=== PATIENT | female | born 1935 | race Caucasian/White ===

== ENCOUNTER 2016-06-08 11:18 | Outpatient (CLI) | payer MEDICARE, BC | END 2016-06-08 23:59 | disposition home or self-care (01) | LOC: CARD 11:18 | DX: C34.91 Malignant neoplasm of unspecified part of right bronchus or lung (principal) | CPT/HCPCS: 93971-TC ==

== ENCOUNTER 2017-01-23 15:19 | Inpatient (IN) | payer MEDICARE, BC ==
[~2017-01-23] VITALS: Ht 160 cm; Wt 57.2 kg
--- NOTE | 2017-01-23 15:19 | NUR ---
BIB DAUGHTER C/O RESPIRATORY DISTRESS, ON O2 @ 15L/MIN FLATTENING MACHINE OPERATOR SPO2=84% FLATTENING MACHINE OPERATOR. NAD NOTED. PT AAO X4, AMB WITH STEADY GAIT. PLACED ON MONITOR AND GOWN. DR ALFONSO AT BEDSIDE FOR EVAL.
[2017-01-23] MEDS ORDERED: IPRATROPIUM NEB FS 0.5 MG/2.5 ML AMPUL.NEB NEB ONE ×2 (15:30→17:00)
[2017-01-23] MEDS ORDERED: ALBUTEROL FS 2.5 MG/3 ML VIAL.NEB NEB ONE ×2 (15:30→17:00)
[2017-01-23 15:53] LABS: BASOPHILS # (AUTO) 0.1 /CMM (0.0-0.2); BASOPHILS % (AUTO) 1.2 % (0.0-2.0); EOSINOPHILS # (AUTO) 0.1 /CMM (0.0-0.7); EOSINOPHILS % (AUTO) 1.1 % (0.0-6.0); HEMATOCRIT 39 % (33-45); HEMOGLOBIN 12.4 g/dL (11.5-14.8); LYMPHOCYTES # (AUTO) 3.1 /CMM (0.8-4.8); LYMPHOCYTES % (AUTO) 24.7 % (20.0-44.0); MEAN CORPUSCULAR HEMOGLOBIN 30 PG (26.0-33.0); MEAN CORPUSCULAR HGB CONC 32 g/dl (31.0-36.0); MEAN CORPUSCULAR VOLUME 93 fL (82-100); MONOCYTES # (AUTO) 0.8 /CMM (0.1-1.30); MONOCYTES % (AUTO) 6.1 % (2.0-12.0); NEUTROPHILS # (AUTO) 8.3 /CMM (1.8-8.9); NEUTROPHILS % (AUTO) 66.9 % (43.0-81.0); PLATELET COUNT (AUTO) 418 /CMM (150-450); RDW COEFFICIENT OF VARIATION 13.5 (11.5-15.0); RED BLOOD CELL COUNT(AUTO) 4.14 MIL/uL (4.0-5.2); WHITE BLOOD COUNT (AUTO) 12.4 K/uL (4.3-11.0)
[2017-01-23 16:01] LABS: ABG BASE EXCESS 8.6 mmol/L; ABG OXYGEN SATURATION 83.5 % (92.0-98.5); ABG PCO2 36.5 mmHg (35.0-45.0); ABG PH 7.552 (7.350-7.450); ABG PO2 45.2 mmHg (75.0-100.0); AaDO2 486.9 mmHg; COHb 0.2 % (0.5-1.5); MetHb 0.3 % (0.0-1.5); O2Hb 83.1 % (94.0-97.0); SITE, ABG Left Radial; VENT MODE, BG NEBULIZER MASK 10L
[2017-01-23 16:03] LABS: CALCIUM, SERUM 9.7 mg/dL (8.5-10.1); CARBON DIOXIDE 30 mmol/L (21-32); CHLORIDE 103 mmol/L (98-107); GLUCOSE 119 mg/dL (74-106); POTASSIUM 3.9 mmol/L (3.5-5.1); SODIUM SERUM 142 mmol/L (136-145); UREA NITROGEN, BLOOD 23 mg/dL (7-18)
[2017-01-23 16:07] LABS: INR 1.06 (0.87-1.13)
[2017-01-23 16:11] LABS: TROPONIN I < 0.017 ng/mL (0.00-0.056)
[2017-01-23 16:16] LABS: ALANINE AMINOTRANSFERASE 16 U/L (12-78); ALBUMIN 3.4 g/dL (3.4-5.0); ALKALINE PHOSPHATASE 88 U/L (46-116); ASPARTATE AMINOTRANSFERASE 19 U/L (15-37); B-TYPE NATRIURETIC PEPTIDE 224 PG/ML (0-125); BILIRUBIN,DIRECT 0.1 mg/dL (0.0-0.2); BILIRUBIN,TOTAL 0.4 mg/dL (0.2-1.0); TOTAL PROTEIN, SERUM 7.4 g/dL (6.4-8.2)
[2017-01-23] MEDS ORDERED: ALBU2.5V38 NEB (16:21)
[2017-01-23] MEDS ORDERED: IPRA0.2S49 NEB (16:21)
[2017-01-23] MEDS ORDERED: METH4TAB16 PO (16:21)
[2017-01-23] MEDS ORDERED: DOCU-170 PO (16:21)
[2017-01-23] MEDS ORDERED: RANI150T12 PO (16:24)
[2017-01-23] MEDS ORDERED: FAMO20TA8 PO (16:24)
[2017-01-23] MEDS ORDERED: GUAI600T PO (16:24)
[2017-01-23] MEDS ORDERED: LORA10TA7 PO (16:24)
--- NOTE | 2017-01-23 16:25 | NUR ---
RT PATIENT REFUSED TO WEAR BIPAP STATED IT IS UNCOMFORTABLE. BENEFITS OF BIPAP EXPLAINED AND PATIENT CONT TO REFUSE. DAUGHTER AT BEDSIDE. PATIENT PLACED BACK ON NRB MASK. DR ALFONSO NOTIFIED.
--- NOTE | 2017-01-23 16:38 | NUR ---
CALLED [employer], BOTTLE SORTER WAS PAGED.
[2017-01-23] MEDS ORDERED: HYDROCODONE/APAP 5/325MG 1 EACH TABLET ONE (16:54)
--- NOTE | 2017-01-23 16:59 | NUR ---
PATIENT WILL BE ADMITTED INTO ROOM 254.
[2017-01-23] MEDS ORDERED: AZITHROMYCIN 500 MG in IV D5W 250 ML IV ONE (17:00)
[2017-01-23] MEDS ORDERED: CEFTRIAXONE 1GM BAG (ER ONLY) 50 ML IV ONE ×2 (17:00→17:08)
[2017-01-23] MEDS ORDERED: HYDROCODONE/APAP 5/325MG 1 EACH TABLET PO ONE (17:00)
[2017-01-23] MEDS ORDERED: IPRATROPIUM NEB FS 0.5 MG/2.5 ML AMPUL.NEB ONE (17:03)
[2017-01-23] MEDS ORDERED: ALBUTEROL FS 2.5 MG/3 ML VIAL.NEB ONE (17:03)
[2017-01-23] MEDS ORDERED: ALBUTEROL FS 2.5 MG/0.5 ML VIAL.NEB ONE (17:03)
--- NOTE | 2017-01-23 17:06 | NUR ---
REPORT GIVEN TO LE HERNANDEZ FOR ANTON
[2017-01-23] MEDS ORDERED: ONDANSETRON HCL/PF 4 MG/2 ML VIAL IVP ONE (17:30)
[2017-01-23] MEDS ORDERED: MORPHINE SULFATE INJ 2 MG/ML DISP.SYRIN IV ONE (17:30)
[2017-01-23] MEDS: ACETYLCYSTEINE 20% SOLN 800 MG/4 ML VIAL NEB SCH ×3 (17:33→23:58)
[2017-01-23] MEDS ORDERED: ONDANSETRON HCL/PF 4 MG/2 ML VIAL ONE (17:37)
[2017-01-23] MEDS ORDERED: MORPHINE SULFATE INJ 4 MG/ML DISP.SYRIN ONE (17:37)
--- NOTE | 2017-01-23 17:37 | NUR ---
DR ROLLINS WAS PAGED.
--- NOTE | 2017-01-23 17:58 | NUR ---
REFUSED SECOND PIV
[2017-01-23] MEDS ORDERED: HEPARIN SODIUM, PORCINE 5000 UNITS/1 ML VIAL IV ONE (18:00)
[2017-01-23] MEDS ORDERED: MAGNESIUM HYDROXIDE 30 ML UDC PO PRN (18:00)
[2017-01-23] MEDS ORDERED: ACETAMINOPHEN 325 MG TABLET PO PRN (18:00)
[2017-01-23] MEDS ORDERED: Z GUARD REMEDY 2 OZ OINT TP PRN (18:00)
[2017-01-23] MEDS ORDERED: MAG HYDROX/AL HYDROX/SIMETH 30 ML UDC PO PRN (18:00)
[2017-01-23] MEDS ORDERED: HEPARIN INFUSION/D5W 500 ML IV ONE (18:00)
--- NOTE | 2017-01-23 18:20 | NUR ---
PULLING MACHINE OPERATOR; ADMIT RECEIVED PT FROM ER VIA TROYRLAURA. WITH ACLS PROTOCOL. PT PLACED ON IN STORE MARKETING ASSOCIATE SHOWING SINUS TACH WITH PVC. PT SATURATION 91% ON NON RE-BREATHER. PT REFUSES USE OF BIPAP. PT HAS ONE IV SITE TO LEFT FOREARM 20G, PT REFUSES SECOND IV ACCESS. 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 WILL REVIEW ADMITTING ORDERS.
[2017-01-23 18:27] VITALS: BP 127/70
[2017-01-23 18:30] VITALS: BP 127/70
[2017-01-23] MEDS ORDERED: HEPARIN INFUSION/D5W 500 ML IV PRN (19:00)
--- NOTE | 2017-01-23 19:35 | NUR ---
pt going for vq scan now, with [employer] ballistic technician. with oxygen nonrebreather 15 lpm. with transport monitor via acls protocol
--- NOTE | 2017-01-23 20:00 | NUR ---
SHIFT MGR - NOTES - RECEIVED PT IN BED, AWAKE ALERT ORIENTED X4. PT ON SALES PROPERTY MANAGER SHOWING SINUS TACH WITH PVC. PT SATURATION LOW 90S% ON NON RE-BREATHER 15 LPM. PT REFUSES USE OF BIPAP. PT HAS ONE IV SITE TO LEFT FOREARM 20G, PT REFUSES SECOND IV ACCESS. DISCUSSED BENEFITS. PT ORIENTED TO ROOM CALL LIGHT WITH IN REACH, BED SET TO LOW POSITION. WILL CONTINUE TO MONITOR
--- NOTE | 2017-01-23 20:10 | NUR ---
PT REFUSED FREQUENT BP READINGS, WILL TAKE BP WHEN PT ALLOWS
--- NOTE | 2017-01-23 20:40 | NUR ---
pt returned from vq scan, successfully completed
--- NOTE | 2017-01-23 20:54 | NUR ---
pt refused heparin drip until after vq scan results
[2017-01-23] MEDS: ALBUTEROL FS 2.5 MG/0.5 ML VIAL.NEB NEB SCH ×2 (21:10→23:59)
[2017-01-23] MEDS: IPRATROPIUM NEB FS 0.5 MG/2.5 ML AMPUL.NEB NEB SCH ×2 (21:10→23:59)
[2017-01-23] MEDS: IV NS 0.9% 1,000 ML IV PRN (21:18)
--- NOTE | 2017-01-23 21:36 | NUR ---
PT GIVEN BREATHING TX ALBUETEROL AND ATROVENT WITH MUCOMYST. PT REQUESTED MUCOMYST ALONG WITH ALBUTEROL AND ATROVENT. PT STATES SHE GETS Q4 MUCOMYST. ORDER IS Q8 MUCOMYST. PULLED MUCOMYST EARLY. NOTIFIED RN TO CHANGED MUCOMYST TO Q4.
--- NOTE | 2017-01-23 22:20 | NUR ---
DR AMES CALLED AND NOTIFIED OF VQ SCAN RESULTS, PT REFUSING HEPARIN DRIP
[2017-01-23] MEDS ORDERED: ACETYLCYSTEINE 10% SOLN 400 MG/4 ML VIAL NEB SCH (23:30)
[2017-01-23] MEDS ORDERED: MORPHINE SULFATE INJ 2 MG/ML DISP.SYRIN ONE (23:48)
[2017-01-23] MEDS: MORPHINE SULFATE INJ 2 MG/ML DISP.SYRIN IV PRN (23:50)
[2017-01-23] MEDS: ACETYLCYSTEINE 10% SOLN 400 MG/4 ML VIAL NEB SCH (23:58)
[2017-01-24] VITALS (10 sets, daily range): BP systolic 110–145; BP diastolic 58–71
--- NOTE | 2017-01-24 03:15 | NUR ---
PT GOT UP WITH ASSISTANCE TO USE BEDSIDE COMMODE
--- NOTE | 2017-01-24 03:23 | NUR ---
PT WANTS NASAL SPRAY FOR DRY NOSE
[2017-01-24] MEDS: IPRATROPIUM NEB FS 0.5 MG/2.5 ML AMPUL.NEB NEB SCH ×6 (03:42→23:36)
[2017-01-24] MEDS: ALBUTEROL FS 2.5 MG/0.5 ML VIAL.NEB NEB SCH ×6 (03:42→23:36)
[2017-01-24] MEDS: ACETYLCYSTEINE 10% SOLN 400 MG/4 ML VIAL NEB SCH ×6 (03:43→23:36)
[2017-01-24 04:36] LABS: BASOPHILS # (AUTO) 0.1 /CMM (0.0-0.2); BASOPHILS % (AUTO) 0.5 % (0.0-2.0); EOSINOPHILS # (AUTO) 0.2 /CMM (0.0-0.7); EOSINOPHILS % (AUTO) 1.9 % (0.0-6.0); HEMATOCRIT 32 % (33-45); HEMOGLOBIN 10.5 g/dL (11.5-14.8); LYMPHOCYTES # (AUTO) 2.8 /CMM (0.8-4.8); LYMPHOCYTES % (AUTO) 22.2 % (20.0-44.0); MEAN CORPUSCULAR HEMOGLOBIN 30 PG (26.0-33.0); MEAN CORPUSCULAR HGB CONC 33 g/dl (31.0-36.0); MEAN CORPUSCULAR VOLUME 93 fL (82-100); MONOCYTES # (AUTO) 1.2 /CMM (0.1-1.30); MONOCYTES % (AUTO) 9.3 % (2.0-12.0); NEUTROPHILS # (AUTO) 8.2 /CMM (1.8-8.9); NEUTROPHILS % (AUTO) 66.1 % (43.0-81.0); PLATELET COUNT (AUTO) 318 /CMM (150-450); RDW COEFFICIENT OF VARIATION 14.3 (11.5-15.0); RED BLOOD CELL COUNT(AUTO) 3.48 MIL/uL (4.0-5.2); WHITE BLOOD COUNT (AUTO) 12.4 K/uL (4.3-11.0)
[2017-01-24 04:46] LABS: ALANINE AMINOTRANSFERASE 16 U/L (12-78); ALBUMIN 2.7 g/dL (3.4-5.0); ALKALINE PHOSPHATASE 73 U/L (46-116); ASPARTATE AMINOTRANSFERASE 15 U/L (15-37); BILIRUBIN,DIRECT 0.1 mg/dL (0.0-0.2); BILIRUBIN,TOTAL 0.4 mg/dL (0.2-1.0); CALCIUM, SERUM 9.4 mg/dL (8.5-10.1); CARBON DIOXIDE 33 mmol/L (21-32); CHLORIDE 107 mmol/L (98-107); GLUCOSE 125 mg/dL (74-106); MAGNESIUM 1.8 mg/dL (1.8-2.4); POTASSIUM 3.8 mmol/L (3.5-5.1); SODIUM SERUM 146 mmol/L (136-145); TOTAL PROTEIN, SERUM 6.2 g/dL (6.4-8.2); UREA NITROGEN, BLOOD 22 mg/dL (7-18)
[2017-01-24 04:55] LABS: CHOLESTEROL 171 mg/dL (<200); HDL CHOLESTEROL 38 mg/dL (40-60); LDL 112 mg/dL (0-99); THYROID STIMULATING HORMONE 1.252 uIU/mL (0.358-3.74); TRIGLYCERIDES 159 mg/dL (30-150)
[2017-01-24] MEDS ORDERED: MORPHINE SULFATE INJ 2 MG/ML DISP.SYRIN ONE (06:18)
[2017-01-24] MEDS: MORPHINE SULFATE INJ 2 MG/ML DISP.SYRIN IV PRN ×4 (06:20→18:49)
--- NOTE | 2017-01-24 07:05 | NUR ---
RN INITIAL NOTES RECEIVED PT ASLEEP, EASY TO AROUSE. ON NON-REBREATHER AT 15LPM. NO RESPIRATORY DISTRESS NOTED. NO SOB NOTED. HOB ELEVATED. NO SIGNS OF PAIN NOTED. IV LINE IN PLACE. ON IVF, TOLERATING WELL. PT COMFORTABLE. CALL LIGHT WITHIN REACH. WILL MONITOR.
[2017-01-24] MEDS: PANTOPRAZOLE 40 MG TABLET.DR PO SCH (07:30)
--- NOTE | 2017-01-24 09:10 | NUR ---
RN NOTES SEEN AND EXAMINED BY DR. KWAN. AWARE OF PT'S STATUS, LAB VALUES. ALSO AWARE OF VQ SCAN RESULT. ORDERED BLE VENOUS DOPPLER. NOTED AND CARRIED OUT. PT AWARE. Addendum: 01/24/17 at 1043 by LEAH PENA RN ABG DONE. DR. KWAN AWARE OF RESULT. WILL KEEP PT ON NON-REBREATHER AT 15LPM. KEPT HOB ELEVATED. NO SOB NOTED. WILL MONITOR.
[2017-01-24 10:40] LABS: ABG BASE EXCESS 5.9 mmol/L; ABG OXYGEN SATURATION 94.9 % (92.0-98.5); ABG PCO2 41.4 mmHg (35.0-45.0); ABG PH 7.478 (7.350-7.450); ABG PO2 77.8 mmHg (75.0-100.0); AaDO2 449.1 mmHg; MetHb 0.8 % (0.0-1.5); O2Hb 94.1 % (94.0-97.0); SITE, ABG Left Radial; VENT MODE, BG 15L NRB
[2017-01-24] MEDS: ENOXAPARIN SODIUM 60 MG/0.6 ML DISP.SYRIN SQ SCH ×2 (11:44→23:52)
[2017-01-24 12:49] LABS: IRON, SERUM 30 ug/dl (50-175); TOTAL IRON BINDING CAPACITY 202 ug/dl (250-450)
[2017-01-24] MEDS: IV NS 0.9% 1,000 ML IV PRN (13:51)
[2017-01-24 14:27] LABS: APPEARANCE,URINE CLEAR (CLEAR); BILIRUBIN,URINE NEGATIVE (NEGATIVE); BLOOD, URINE NEGATIVE Ery/uL (NEGATIVE); COLOR,URINE YELLOW (YELLOW); KETONES,URINE TRACE (NEGATIVE); LEUKOCYTE ESTERASE ,URINE TRACE (NEGATIVE); NITRITE, URINE NEGATIVE (NEGATIVE); PH,URINE 7.5 (5.0-8.0); PROTEIN,URINE TRACE mg/dl (NEGATIVE); UGLUCOSE NEGATIVE (NEGATIVE); UROBILINOGEN,URINE 0.2 EU/dL (0.2)
[2017-01-24 16:03] LABS: BACTERIA,URINE None seen /HPF (None Seen); RBC,URINE 0-2 /HPF (0-2); SQUAMOUS EPITHELIAL CELL,UR Few /HPF (None Seen)
[2017-01-24] MEDS ORDERED: CEFTRIAXONE 1 G in IV D5W 50 ML IV SCH (17:00)
--- NOTE | 2017-01-24 17:00 | NUR ---
RN NOTES CALLED DR. BENTON REGARDING CT CHEST RESULT. LEFT A MESSAGE. AWAITING CALL BACK. PT A/OX4. DENIES SOB. ON NON-REBREATHER AT 15LPM. HOB ELEVATED. WILL MONITOR Addendum: 01/24/17 at 1756 by LEAH PENA RN DR BENTON CALLED BACK. AWARE OF CT CHEST AND D-DIMER RESULT. PT ON IV ANTIBIOTICS. NO ASE NOTED. AFEBRILE. PER , REPEAT D-DIMER IN AM.
[2017-01-24] MEDS ORDERED: AZITHROMYCIN 500 MG in IV D5W 250 ML IV SCH (18:00)
--- NOTE | 2017-01-24 18:57 | NUR ---
RN CLOSING NOTES PT REMAINS STABLE. NO SIGNIFICANT CHANGE NOTED. REMAINS ON NON-REBREATHER AT 15LPM. KEP HOB ELEVATED. PAIN WELL MANAGED, GIVEN PAIN MEDS ORDERED. KEPT COMFORTABLE. ALL NEEDS ATTENDED AND MET. WILL ENDORSE FOR CONTINUITY OF CARE.
[2017-01-24] MEDS ORDERED: FEE PK DOSING 1 MIN EA MC ONE (19:14)
[2017-01-24] MEDS: VANCOMYCIN 1 GM in IV D5W 250 ML IV SCH (19:55)
--- NOTE | 2017-01-24 20:00 | NUR ---
PIPED BUTTONHOLE MACHINE OPERATOR - NOTES - RECEIVED PT IN BED, AWAKE ALERT ORIENTED X 4. PT IS ON NRB AT 15 LPM, PT IS SR BP WNL, PT REFUSES FREQUENT BLOOD PRESSURE. PT HAS L FA 20G IV W NS @ 60 ML/HR TOLERATING WELL. PT COMFORTABLE. CALL LIGHT WITHIN REACH. WILL MONITOR.
--- NOTE | 2017-01-24 21:55 | NUR ---
L FA 20G IV INFILTRATED. PT AGREED TO HAVE A MIDLINE PLACED IN LEFT ARM
[2017-01-24] MEDS: HYDROCODONE/APAP 5/325MG 1 EACH TABLET PO PRN (22:55)
[2017-01-24] MEDS: PIPERACILLIN /TAZOBACTAM 3.375 G in IV D5W 50 ML IV SCH (23:53)
[2017-01-25] VITALS (11 sets, daily range): BP systolic 120–147; BP diastolic 50–82
[2017-01-25] MEDS ORDERED: methylPREDNISolone SOD SUCC 125 MG/2ML VIAL ONE (00:46)
[2017-01-25] MEDS ORDERED: FAMOTIDINE/PF INJ 20 MG/2 ML VIAL IV ONE (00:46)
[2017-01-25] MEDS: MORPHINE SULFATE INJ 2 MG/ML DISP.SYRIN IV PRN ×2 (00:49→18:40)
[2017-01-25] MEDS ORDERED: FAMOTIDINE (20 MG) 20 MG TABLET ONE (00:53)
[2017-01-25] MEDS: FAMOTIDINE (20 MG) 20 MG TABLET PO SCH ×3 (00:55→21:13)
[2017-01-25] MEDS ORDERED: methylPREDNISolone SOD SUCC 125 MG/2ML VIAL IV ONE (01:00)
[2017-01-25] MEDS: ONDANSETRON HCL/PF 4 MG/2 ML VIAL IVP PRN (03:06)
[2017-01-25] MEDS: ACETYLCYSTEINE 10% SOLN 400 MG/4 ML VIAL NEB SCH ×6 (03:56→23:10)
[2017-01-25] MEDS: IPRATROPIUM NEB FS 0.5 MG/2.5 ML AMPUL.NEB NEB SCH ×6 (03:56→23:10)
[2017-01-25] MEDS: ALBUTEROL FS 2.5 MG/0.5 ML VIAL.NEB NEB SCH ×6 (03:56→23:10)
[2017-01-25 04:36] LABS: BASOPHILS % (AUTO) 0.3 % (0.0-2.0); EOSINOPHILS # (AUTO) 0.1 /CMM (0.0-0.7); EOSINOPHILS % (AUTO) 0.8 % (0.0-6.0); HEMATOCRIT 31 % (33-45); HEMOGLOBIN 10.6 g/dL (11.5-14.8); LYMPHOCYTES % (AUTO) 6.3 % (20.0-44.0); MEAN CORPUSCULAR HEMOGLOBIN 31 PG (26.0-33.0); MEAN CORPUSCULAR HGB CONC 34 g/dl (31.0-36.0); MEAN CORPUSCULAR VOLUME 93 fL (82-100); MONOCYTES # (AUTO) 0.2 /CMM (0.1-1.30); MONOCYTES % (AUTO) 1.2 % (2.0-12.0); NEUTROPHILS # (AUTO) 14.7 /CMM (1.8-8.9); NEUTROPHILS % (AUTO) 91.4 % (43.0-81.0); PLATELET COUNT (AUTO) 286 /CMM (150-450); RDW COEFFICIENT OF VARIATION 13.7 (11.5-15.0); RED BLOOD CELL COUNT(AUTO) 3.38 MIL/uL (4.0-5.2)
[2017-01-25 04:57] LABS: CALCIUM, SERUM 9.5 mg/dL (8.5-10.1); CARBON DIOXIDE 30 mmol/L (21-32); CHLORIDE 107 mmol/L (98-107); CREATININE 0.9 mg/dL (0.6-1.3); GLUCOSE 170 mg/dL (74-106); MAGNESIUM 1.8 mg/dL (1.8-2.4); POTASSIUM 3.9 mmol/L (3.5-5.1); SODIUM SERUM 144 mmol/L (136-145); UREA NITROGEN, BLOOD 14 mg/dL (7-18)
[2017-01-25] MEDS: PIPERACILLIN /TAZOBACTAM 3.375 G in IV D5W 50 ML IV SCH ×4 (05:06→23:47)
[2017-01-25 05:37] LABS: LYMPHOCYTES % (MANUAL) 5 % (16-48); NEUTROPHILS % (MANUAL) 95 (42-76)
[2017-01-25] MEDS: PANTOPRAZOLE 40 MG TABLET.DR PO SCH (07:30)
--- NOTE | 2017-01-25 07:30 | NUR ---
HUMAN RELATIONS MANAGER RECEIVED PATIENT AWAKE SITTING ON BED WITH ON GOING IV OF NS TO RUN FOR 60 ML/HR AFEBRILE ON NON-REBREATHING MASK AT 15 LITERS/MIN ABLE TO EXPECTORATE YELLOWISH SECRETION IN LARGE AMOUNT PATIENT SAID THAT SHE HAS PAIN , PAIN MEDICATION GIVEN ABLE TO WALK FROM BED TO COMMODE PATIENT DOES NOT WANT TO HER BLOOD PRESSURE ALL THE TIME SINCE SHE SAID ITS NO USE SINCE SHE DOES NOT FEEL ANYTHING WRONG WITH HER BP NO OTHER UNTOWARD SIGNS AND SYMPTOMS SEEN
[2017-01-25] MEDS: OLOPATADINE HCL 0.1% OPHTH BOTTLE EACHEYE SCH ×3 (09:08→17:30)
[2017-01-25] MEDS: methylPREDNISolone SOD SUCC 125 MG/2ML VIAL IV SCH ×3 (09:10→17:30)
[2017-01-25] MEDS: ENOXAPARIN SODIUM 60 MG/0.6 ML DISP.SYRIN SQ SCH (10:57)
[2017-01-25] MEDS ORDERED: DOCUSATE SODIUM 100 MG CAPSULE PO SCH (11:00)
[2017-01-25] MEDS: DOCUSATE SODIUM 100 MG CAPSULE PO SCH ×2 (11:23→17:31)
[2017-01-25] MEDS: VANCOMYCIN 1 GM in IV D5W 250 ML IV SCH (13:50)
--- NOTE | 2017-01-25 16:00 | NUR ---
MANAGER CASE SEEN AND EXAMINED BY INFECTIOUS DOCTOR WITH ORDER OF MADE AND CARRIED OUT
[2017-01-25] MEDS: FERROUS SULFATE (325 MG) 325 MG/TAB TABLET PO SCH (17:31)
[2017-01-25] MEDS: IV NS 0.9% 1,000 ML IV PRN (18:44)
--- NOTE | 2017-01-25 20:00 | NUR ---
MANAGER NURSING NOTES RECEIVED PT IN BED SITTING UPRIGHT OVER THE EDGE. A/O X3. TELE READS SR AT 92 BPM. ON NONREBREATHER MASK AT 15 LPM, JERZY WELL. CRACKLES AUSCULTATED THROUGHOUT LOWER LUNGS. PT IS ON REG DIET AND EATING DINNER. KRISTA MIDLINE 18G RUNNING NS AT 60 ML/HR. SKIN IS INTACT. PT DENIES PAIN AT THIS TIME. PT REFUSES BLOOD PRESSURES MEASUREMENT AT THIS TIME. BP HAS BEEN TRENDING IN THE 140s.
[2017-01-26] VITALS (11 sets, daily range): BP systolic 115–165; BP diastolic 56–81
[2017-01-26] MEDS: MORPHINE SULFATE INJ 2 MG/ML DISP.SYRIN IV PRN ×3 (00:37→05:08)
[2017-01-26] MEDS: HYDROCODONE/APAP 5/325MG 1 EACH TABLET PO PRN (02:48)
[2017-01-26] MEDS: IPRATROPIUM NEB FS 0.5 MG/2.5 ML AMPUL.NEB NEB SCH ×6 (03:20→23:28)
[2017-01-26] MEDS: ACETYLCYSTEINE 10% SOLN 400 MG/4 ML VIAL NEB SCH ×6 (03:20→23:29)
[2017-01-26] MEDS: ALBUTEROL FS 2.5 MG/0.5 ML VIAL.NEB NEB SCH ×6 (03:20→23:28)
[2017-01-26] MEDS: PIPERACILLIN /TAZOBACTAM 3.375 G in IV D5W 50 ML IV SCH ×3 (06:49→17:12)
[2017-01-26] MEDS: PANTOPRAZOLE 40 MG TABLET.DR PO SCH (07:30)
--- NOTE | 2017-01-26 07:30 | NUR ---
ICU/RN: PT RECEIVED SITTING IN BED, A&OX4, ANXIOUS, RECEIVING BREATHING TX, DESATURATION NOTED ON EXERTION, COURSE CRACKLES NOTED ON AUSCULTATION, WITH PRODUCTIVE COUGH EXPECTORATING MODERATE AMOUNT OF THICK WHITE SECRETIONS. KRISTA MIDLINE FLUSHED, PATENT AND INTACT. REFUSING AM DOSE OF PROTONIX, PER PT "ID RATHER JUST TAKE MY PEPCID." EDUCATED, VERBALIZED UNDERSTANDING OF POC, HOWEVER CONTINUES TO REFUSE PROTONIX AND OTHER ASPECTS OF CARE SUCH VS Q1H. ALARM SOUNDS AUDIBLE, SAFETY MEASURES IN PLACE. WILL CONT TO MONITOR PT.
[2017-01-26 07:41] LABS: CALCIUM, SERUM 9.2 mg/dL (8.5-10.1); CARBON DIOXIDE 32 mmol/L (21-32); CHLORIDE 107 mmol/L (98-107); GLUCOSE 155 mg/dL (74-106); MAGNESIUM 1.8 mg/dL (1.8-2.4); PHOSPHORUS 3.2 mg/dL (2.5-4.9); POTASSIUM 3.9 mmol/L (3.5-5.1); SODIUM SERUM 145 mmol/L (136-145); UREA NITROGEN, BLOOD 21 mg/dL (7-18); VANCOMYCIN,TROUGH 9 ug/ml (12-20)
[2017-01-26 07:51] LABS: BASOPHILS % (AUTO) 0.1 % (0.0-2.0); HEMATOCRIT 32 % (33-45); HEMOGLOBIN 10.6 g/dL (11.5-14.8); LYMPHOCYTES # (AUTO) 2.1 /CMM (0.8-4.8); LYMPHOCYTES % (AUTO) 10.7 % (20.0-44.0); MEAN CORPUSCULAR HEMOGLOBIN 31 PG (26.0-33.0); MEAN CORPUSCULAR HGB CONC 33 g/dl (31.0-36.0); MEAN CORPUSCULAR VOLUME 93 fL (82-100); MONOCYTES # (AUTO) 1.2 /CMM (0.1-1.30); MONOCYTES % (AUTO) 6.1 % (2.0-12.0); NEUTROPHILS # (AUTO) 15.9 /CMM (1.8-8.9); NEUTROPHILS % (AUTO) 83.1 % (43.0-81.0); PLATELET COUNT (AUTO) 307 /CMM (150-450); RDW COEFFICIENT OF VARIATION 14.1 (11.5-15.0); RED BLOOD CELL COUNT(AUTO) 3.42 MIL/uL (4.0-5.2); WHITE BLOOD COUNT (AUTO) 19.2 K/uL (4.3-11.0)
[2017-01-26] MEDS: FERROUS SULFATE (325 MG) 325 MG/TAB TABLET PO SCH ×2 (08:11→16:09)
[2017-01-26] MEDS: FAMOTIDINE (20 MG) 20 MG TABLET PO SCH ×2 (08:11→21:11)
[2017-01-26] MEDS: methylPREDNISolone SOD SUCC 125 MG/2ML VIAL IV SCH ×3 (08:11→16:09)
[2017-01-26] MEDS: DOCUSATE SODIUM 100 MG CAPSULE PO SCH ×2 (08:19→16:09)
[2017-01-26] MEDS: ENOXAPARIN SODIUM 60 MG/0.6 ML DISP.SYRIN SQ SCH (08:19)
[2017-01-26] MEDS: VANCOMYCIN 1 GM in IV D5W 250 ML IV SCH (08:20)
[2017-01-26] MEDS ORDERED: ALPRAZOLAM 0.25 MG TABLET PO PRN (08:30)
--- NOTE | 2017-01-26 08:30 | NUR ---
ICU/RN: DR MCDONOUGH AT BEDSIDE, UPDATED ON PT STATUS. PER MD, OK TO CONTINUE PT NASAL SPRAY AND EYEDROPS FROM HOME. SENT DOWN TO PHARMACY PER PROTOCOL. PT UPDATED.
[2017-01-26] MEDS ORDERED: [UNRECOGNIZED DRUG - OTHER] PRN (09:30)
[2017-01-26] MEDS: OLOPATADINE HCL 0.1% OPHTH BOTTLE EACHEYE SCH ×2 (10:00→16:09)
[2017-01-26] MEDS: RESTASIS EACHEYE SCH ×2 (10:00→16:08)
[2017-01-26] MEDS: GUAIFENESIN 300 MG/15 ML UDC PO PRN (10:07)
--- NOTE | 2017-01-26 10:30 | NUR ---
ICU/RN: DR BENTON AT BEDSIDE FOR ONCO/HEMATOLOGY F/U. DISCUSSED LABS AND POC WITH PT. NOTIFIED MD OF INCREASE IN D-DIMER, PER MD CONTINUE CURRENT LOVENOX DOSE AND RECHECK D-DIMER TOMORROW AM.
[2017-01-26] MEDS ORDERED: MORPHINE SULFATE INJ 4 MG/ML DISP.SYRIN IV PRN (11:00)
[2017-01-26] MEDS: IV NS 0.9% 1,000 ML IV PRN (12:18)
[2017-01-26] MEDS ORDERED: MORPHINE SULFATE INJ 2 MG/ML DISP.SYRIN IV PRN (13:00)
[2017-01-26] MEDS: MORPHINE SULFATE INJ 4 MG/ML DISP.SYRIN IV PRN ×2 (14:33→19:01)
[2017-01-26] MEDS: NYSTATIN (PYXIS) 500,000 UNIT/5 ML ORAL.SUSP PO SCH (16:09)
[2017-01-26] MEDS: ONDANSETRON HCL/PF 4 MG/2 ML VIAL IVP PRN (16:38)
--- NOTE | 2017-01-26 19:15 | NUR ---
ICU/RN: PT ASSISTED TO COMMODE, NO DISTRESS NOTED. CARE ENDORSED TO PM RN FOR ANTON.
[2017-01-26] MEDS: VANCOMYCIN 0.75 GM in IV D5W 250 ML IV SCH (21:04)
[2017-01-27] VITALS (22 sets, daily range): BP systolic 91–164; BP diastolic 40–88
[2017-01-27] MEDS: PIPERACILLIN /TAZOBACTAM 3.375 G in IV D5W 50 ML IV SCH ×5 (00:03→23:45)
[2017-01-27] MEDS: MORPHINE SULFATE INJ 4 MG/ML DISP.SYRIN IV PRN ×6 (00:05→22:14)
--- NOTE | 2017-01-27 00:30 | NUR ---
MIXOLOGIST- REC'D PT. AT RECEIVING RESP. TX'S. PT. SLEEPING INTERMITTENTLY, EASILY AROUSABLE. PT. HAS CHRONIC NEUROPATHY TO BILAT. FEET & CONT.SOB. PT. ADM. MORPHINE SULFATE ONE MG IVP AT 00:05 AM. PT.HAS NRB/15L ON CONT. WHEEZES,RALES & RHONCHI ARE CONT. AND INTERMITTENT. O2 SATS DIP INTO THE 80'S WHEN PT. TAKES OFF MASK. VANCO IVPB ADM. (LAST VANCO TROUGH=9). AFEBRILE. A&OX4. 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 PT. IS USING [facility] [place]. JIMMY BUENO HAS ALL PORTS PATENT TO FLUSH. 0.9%NS IS INFUSING AT 60CC/HR VIA FISHER PUMP. MEPILEX TO SACRUM. LINENS & GOWN CHANGED AT 22:00. LINENS ARE WRINKLE FREE. CONT. POC.
[2017-01-27] MEDS: ACETYLCYSTEINE 10% SOLN 400 MG/4 ML VIAL NEB SCH ×6 (03:00→23:58)
[2017-01-27] MEDS: IPRATROPIUM NEB FS 0.5 MG/2.5 ML AMPUL.NEB NEB SCH ×6 (03:00→23:58)
[2017-01-27] MEDS: ALBUTEROL FS 2.5 MG/0.5 ML VIAL.NEB NEB SCH ×6 (03:00→23:58)
[2017-01-27 05:01] LABS: BASOPHILS % (AUTO) 0.1 % (0.0-2.0); EOSINOPHILS % (AUTO) 0.2 % (0.0-6.0); HEMATOCRIT 31 % (33-45); LYMPHOCYTES # (AUTO) 2.5 /CMM (0.8-4.8); LYMPHOCYTES % (AUTO) 13.2 % (20.0-44.0); MEAN CORPUSCULAR HEMOGLOBIN 30 PG (26.0-33.0); MEAN CORPUSCULAR HGB CONC 32 g/dl (31.0-36.0); MEAN CORPUSCULAR VOLUME 93 fL (82-100); MONOCYTES # (AUTO) 1.1 /CMM (0.1-1.30); NEUTROPHILS % (AUTO) 80.5 % (43.0-81.0); PLATELET COUNT (AUTO) 290 /CMM (150-450); RDW COEFFICIENT OF VARIATION 14.6 (11.5-15.0); RED BLOOD CELL COUNT(AUTO) 3.29 MIL/uL (4.0-5.2); WHITE BLOOD COUNT (AUTO) 18.6 K/uL (4.3-11.0)
[2017-01-27 05:15] LABS: CALCIUM, SERUM 8.6 mg/dL (8.5-10.1); CARBON DIOXIDE 29 mmol/L (21-32); CHLORIDE 108 mmol/L (98-107); GLUCOSE 155 mg/dL (74-106); MAGNESIUM 1.8 mg/dL (1.8-2.4); PHOSPHORUS 3.1 mg/dL (2.5-4.9); POTASSIUM 3.5 mmol/L (3.5-5.1); SODIUM SERUM 145 mmol/L (136-145); UREA NITROGEN, BLOOD 20 mg/dL (7-18)
--- NOTE | 2017-01-27 07:05 | NUR ---
RN INITIAL NOTES RECEIVED PT AWAKE, A/OX4. SITTING ON EDGE OF BED. ON NON-REBREATHER AT 15LPM VIA NC. NO RESPIRATORY DISTRESS NOTED. DENIES ANY PAIN. KRISTA MIDLINE IN PLACE. ON IVF. PT COMFORTABLE. CALL LIGHT WITHIN REACH. WILL MONITOR.
[2017-01-27] MEDS: PANTOPRAZOLE 40 MG TABLET.DR PO SCH (07:30)
[2017-01-27] MEDS: FAMOTIDINE (20 MG) 20 MG TABLET PO SCH ×2 (08:30→20:41)
[2017-01-27] MEDS: VANCOMYCIN 0.75 GM in IV D5W 250 ML IV SCH (08:30)
[2017-01-27] MEDS: NYSTATIN (PYXIS) 500,000 UNIT/5 ML ORAL.SUSP PO SCH ×3 (08:30→16:35)
[2017-01-27] MEDS: FERROUS SULFATE (325 MG) 325 MG/TAB TABLET PO SCH ×2 (08:30→16:35)
[2017-01-27] MEDS: CALCIUM CARBONATE 500 MG TAB.CHEW PO SCH (08:30)
[2017-01-27] MEDS: OLOPATADINE HCL 0.1% OPHTH BOTTLE EACHEYE SCH ×3 (08:30→16:34)
[2017-01-27] MEDS: DOCUSATE SODIUM 100 MG CAPSULE PO SCH ×2 (08:30→16:35)
[2017-01-27] MEDS: RESTASIS EACHEYE SCH ×2 (08:30→17:35)
[2017-01-27] MEDS: ENOXAPARIN SODIUM 60 MG/0.6 ML DISP.SYRIN SQ SCH (08:33)
[2017-01-27] MEDS: methylPREDNISolone SOD SUCC 125 MG/2ML VIAL IV SCH ×3 (08:45→16:36)
--- NOTE | 2017-01-27 09:00 | NUR ---
RN NOTES SEEN AND EXAMINED BY DR. MCDONOUGH. AWARE OF LAB VALUES AND CURRENT MEDS. NO NEW ORDER MADE.
[2017-01-27] MEDS: IV NS 0.9% 1,000 ML IV PRN (09:57)
[2017-01-27] MEDS: P-EPHED SUL/LORATADINE (24H) 1 TAB.SR.24H PO SCH (09:57)
[2017-01-27] MEDS: GUAIFENESIN 300 MG/15 ML UDC PO PRN ×2 (10:01→17:35)
--- NOTE | 2017-01-27 14:11 | NUR ---
RN NOTES SEEN AND EXAMINED BY DR. KWAN. PT REMAINS ON NON-REBREATHER AT 15LPM. KEPT HOB ELEVATED. RR 20-30S, 02 SAT 90-95%. ORDERED CHEST PT 3X/DAY. NOTED AND CARRIED OUT. DIOR SHAHID AWARE.
--- NOTE | 2017-01-27 14:20 | NUR ---
RN NOTES SEEN AND EXAMINED BY DR. BOWEN. AWARE OF PT'S STATUS. NO ORDER MADE. PT NOT INTERESTED OF TAKING ANY MEDS AT THIS MOMENT.
--- NOTE | 2017-01-27 18:32 | NUR ---
RN CLOSING NOTES PT REMAINS STABLE. NO SIGNIFICANT CHANGE NOTED. ON NON-REBREATHER AT 15LPM. PAIN WELL MANAGED. GIVEN PAIN MEDS ORDERED, NOTED EFFECTIVE. MIDLINE IN PLACE. TOLERATING IVF WELL. KEPT CLEAN AND DRY. ALL NEEDS ATTENDED AND MET. KEPT COMFORTABLE. CALL LIGHT WITHIN REACH. WILL ENDORSE FOR CONTINUITY OF CARE.
--- NOTE | 2017-01-27 20:00 | NUR ---
Received patient resting in bed appears comfortable.A/O X 4.VS stable.SR with LBBB. With 100% NRB mask well tolerated spo2 100%.Encouraged to cough and deep breath. Respiration even and unlabored.IVF NS infusing to KRISTA MIDLINE site intact.Denies pain or any discomfort at this time.Call light at bedside with instructions.
[2017-01-28] VITALS (67 sets, daily range): BP systolic 54–164; BP diastolic 25–100
[2017-01-28] MEDS: MORPHINE SULFATE INJ 4 MG/ML DISP.SYRIN IV PRN ×3 (01:37→05:11)
[2017-01-28] MEDS: IPRATROPIUM NEB FS 0.5 MG/2.5 ML AMPUL.NEB NEB SCH ×6 (03:15→23:28)
[2017-01-28] MEDS: ACETYLCYSTEINE 10% SOLN 400 MG/4 ML VIAL NEB SCH ×6 (03:15→23:28)
[2017-01-28] MEDS: ALBUTEROL FS 2.5 MG/0.5 ML VIAL.NEB NEB SCH ×6 (03:15→23:28)
--- NOTE | 2017-01-28 03:26 | NUR ---
PT WASN'T ABLE TO FINISH BREATHING TX. PT BECAME ANXIOUS TOOK TX OFF. PT COMPLAIN SHE CANT BREATH. RN NOTIFIED.
--- NOTE | 2017-01-28 03:27 | NUR ---
Patient very restless and anxious.Xanax given as prn.
[2017-01-28] MEDS ORDERED: MORPHINE SULFATE INJ 2 MG/ML DISP.SYRIN ONE ×2 (03:40→03:46)
[2017-01-28] MEDS ORDERED: FUROSEMIDE 100 MG/10 ML VIAL ONE (03:40)
[2017-01-28] MEDS ORDERED: MORPHINE SULFATE INJ 2 MG/ML DISP.SYRIN IV STA (03:49)
[2017-01-28 03:59] LABS: BASOPHILS % (AUTO) 0.2 % (0.0-2.0); EOSINOPHILS % (AUTO) 0.1 % (0.0-6.0); HEMATOCRIT 36 % (33-45); HEMOGLOBIN 11.7 g/dL (11.5-14.8); LYMPHOCYTES # (AUTO) 9.2 /CMM (0.8-4.8); LYMPHOCYTES % (AUTO) 31.7 % (20.0-44.0); MEAN CORPUSCULAR HEMOGLOBIN 30 PG (26.0-33.0); MEAN CORPUSCULAR HGB CONC 32 g/dl (31.0-36.0); MEAN CORPUSCULAR VOLUME 94 fL (82-100); MONOCYTES # (AUTO) 2.2 /CMM (0.1-1.30); MONOCYTES % (AUTO) 7.5 % (2.0-12.0); NEUTROPHILS # (AUTO) 17.5 /CMM (1.8-8.9); NEUTROPHILS % (AUTO) 60.5 % (43.0-81.0); PLATELET COUNT (AUTO) 396 /CMM (150-450); RDW COEFFICIENT OF VARIATION 14.5 (11.5-15.0); RED BLOOD CELL COUNT(AUTO) 3.84 MIL/uL (4.0-5.2)
[2017-01-28] MEDS ORDERED: FUROSEMIDE 100 MG/10 ML VIAL IV ONE (04:00)
[2017-01-28] MEDS ORDERED: MORPHINE SULFATE INJ 2 MG/ML DISP.SYRIN IV ONE (04:00)
[2017-01-28] MEDS ORDERED: BUMETANIDE INJ 6 MG in IV NS 0.9% 36 ML IV ONE (04:00)
[2017-01-28] MEDS ORDERED: BUMETANIDE INJ 0.25 MG/ML VIAL ONE ×2 (04:08)
--- NOTE | 2017-01-28 04:15 | NUR ---
BUMEX drip started as ordered.
[2017-01-28 04:20] LABS: CALCIUM, SERUM 9.3 mg/dL (8.5-10.1); CARBON DIOXIDE 25 mmol/L (21-32); CHLORIDE 105 mmol/L (98-107); GLUCOSE 224 mg/dL (74-106); MAGNESIUM 1.9 mg/dL (1.8-2.4); PHOSPHORUS 3.7 mg/dL (2.5-4.9); POTASSIUM 3.8 mmol/L (3.5-5.1); SODIUM SERUM 144 mmol/L (136-145); UREA NITROGEN, BLOOD 20 mg/dL (7-18)
--- NOTE | 2017-01-28 04:30 | NUR ---
2428 DELLA,Kelvin Glasgow here updated of patient status.Congested and very restless. evaluated patient with orders and help give medications to patient as to lasix and several doses of morphine.Portable CXR done.Patient refused bipap. Patient verbalized feels better after.
[2017-01-28 04:35] LABS: LYMPHOCYTES % (MANUAL) 30 % (16-48); MONOCYTES % (MANUAL) 9 % (0-11.0); NEUTROPHILS % (MANUAL) 61 (42-76)
--- NOTE | 2017-01-28 05:55 | NUR ---
Patient refused aguila cath to be inserted now and refused bed bath or am care.
[2017-01-28] MEDS: PIPERACILLIN /TAZOBACTAM 3.375 G in IV D5W 50 ML IV SCH ×3 (05:58→17:00)
--- NOTE | 2017-01-28 06:10 | NUR ---
Patient finally agreed to have aguila cath. Inserted under aseptic technique FR#16 aguila catheter. Patient tolerated procedure well.
--- NOTE | 2017-01-28 07:11 | NUR ---
Patient sleeping awakened easily.Verbalized comfort.vs stable.Good urine output from lasix and bumex.
--- NOTE | 2017-01-28 07:15 | NUR ---
ICU/RN: PT RECEIVED, DROWSY, PALE, AROUSABLE TO LIGHT TOUCH, A&OX4, PER PT, "THE MORPHINE WAS EFFECTIVE, I FEEL MUCH BETTER. WHEN CAN I TAKE MY NEXT DOSE?" ORIENTED PT TO SURROUNDINGS AND POC, INSTRUCTED TO TAKE SLOW DEEP BREATHS. PT O2 SAT 84% ON 15L/MIN VIA NON-REBREATHER. CONFIRMED DNI STATUS, AND REFUSES BIPAP. BUMEX DRIP INFUSING THROUGH KRISTA MIDLINE; FLUSHED, PATENT. CLEAR YELLOW URINE DRAINING WELL THRU FC TO GRAVITY.
[2017-01-28] MEDS: PANTOPRAZOLE 40 MG TABLET.DR PO SCH (07:30)
[2017-01-28] MEDS ORDERED: MORPHINE SULFATE INJ 2 MG/ML DISP.SYRIN IV PRN (08:30)
--- NOTE | 2017-01-28 08:30 | NUR ---
ICU/RN: DR VAZQUEZ AT BEDSIDE; UPDATED ON PT STATUS. DISCUSSED POC WITH PT, VERBALIZED UNDERSTANDING. CONTINUES TO REFUSE BIPAP.
[2017-01-28] MEDS: FERROUS SULFATE (325 MG) 325 MG/TAB TABLET PO SCH (09:00)
[2017-01-28] MEDS: DOCUSATE SODIUM 100 MG CAPSULE PO SCH (09:00)
--- NOTE | 2017-01-28 09:00 | NUR ---
ICU/RN: DUE MEDS ADMINISTERED, PT REFUSED COLACE, STATES "I DON'T WANT THE COLACE, I HAD A HUGE BM YESTERDAY." EDUCATED ON NEED FOR STOOL SOFTENER AND SIDE EFFECTS OF MORPHINE, PT STILL REFUSES.
[2017-01-28] MEDS: NYSTATIN (PYXIS) 500,000 UNIT/5 ML ORAL.SUSP PO SCH ×3 (09:20→16:57)
[2017-01-28] MEDS: CALCIUM CARBONATE 500 MG TAB.CHEW PO SCH (09:20)
[2017-01-28] MEDS: methylPREDNISolone SOD SUCC 125 MG/2ML VIAL IV SCH (09:20)
[2017-01-28] MEDS: FAMOTIDINE (20 MG) 20 MG TABLET PO SCH (09:20)
[2017-01-28] MEDS: ENOXAPARIN SODIUM 60 MG/0.6 ML DISP.SYRIN SQ SCH (09:21)
[2017-01-28] MEDS: RESTASIS EACHEYE SCH ×2 (09:23→17:00)
[2017-01-28] MEDS: OLOPATADINE HCL 0.1% OPHTH BOTTLE EACHEYE SCH ×3 (09:23→17:03)
[2017-01-28] MEDS: P-EPHED SUL/LORATADINE (24H) 1 TAB.SR.24H PO SCH (09:23)
[2017-01-28] MEDS: FLUCONAZOLE IN NS 100 MG in PREMIX 1 EA IV SCH ×2 (09:39)
--- NOTE | 2017-01-28 10:00 | NUR ---
ICU/RN: DR KWAN AT THE BEDSIDE; PT CONTINUES TO BE HYPOXEMIC O2 SAT 84-87% 15L/MIN ON A NON-REBREATHER MASK. PT AGREES TO BE PLACED ON BIPAP.
[2017-01-28 10:33] LABS: ABG BASE EXCESS 7.3 mmol/L; ABG OXYGEN SATURATION 80.7 % (92.0-98.5); ABG PCO2 37.9 mmHg (35.0-45.0); ABG PH 7.523 (7.350-7.450); ABG PO2 42.2 mmHg (75.0-100.0); AaDO2 488.4 mmHg; COHb 0.5 % (0.5-1.5); MetHb 0.6 % (0.0-1.5); O2Hb 79.8 % (94.0-97.0); SITE, ABG Left Radial; VENT MODE, BG NRB
--- NOTE | 2017-01-28 11:20 | NUR ---
ICU/RN: PT CONTINUES TO HAVE INCREASED WORK OF BREATHING, TACHYPNEA, HR 130'S ON BIPAP WITH 100% FIO2, O2 SAT 87%. DR KWAN AT BEDSIDE, DISCUSSES INTUBATION AND POC. PT AGREES TO SHORT TERM INTUBATION, PT VERBALIZES UNDERSTANDING OF POC.
--- NOTE | 2017-01-28 11:23 | NUR ---
ICU/RN: YA, DAUGHTER, DPOA AT BEDSIDE. UPDATED ON PT STATUS. APPEARS ANXIOUS AND AGITATED, STATES "NO, MY MOM AND I TALKED ABOUT THIS FOR A LONG TIME, NO INTUBATION." TANK CAR INSPECTOR AND PRIMARY RN AT BEDSIDE, VERIFIED WITH PT, STATES "YES, IT'S OK FOR ME TO BE INTUBATED." INFORMED DAUGHTER THAT DR KWAN AND PT HAD MULTIPLE DW PT REGARDING BIPAP AND INTUBATION AND PT GAVE VERBAL CONSENT. ORDERS FOR INTUBATION NOTED AND CARRIED OUT.
[2017-01-28] MEDS: MORPHINE SULFATE INJ 2 MG/ML DISP.SYRIN IV PRN (11:25)
--- NOTE | 2017-01-28 11:26 | NUR ---
RT NOTE PT INTUBATED PER MD ORDER. 7.5 ETT AT 24 AT LIP. SETTINGS ENDORSED VIA DR KWAN. ALARMS SET PER PROTOCOL. VENT PLUGGED IN TO RED OUTLET. AMBU BAG AT BEDSIDE. NO DISTRESS NOTED. WILL CONTINUE TO MONITOR. Addendum: 01/28/17 at 1127 by ATUL ALFONSO RT Amended: Links added.
[2017-01-28] MEDS ORDERED: IV NS 0.9% 500 ML IV ONE (11:30)
[2017-01-28] MEDS ORDERED: PROPOFOL 100 ML IV PRN (11:30)
--- NOTE | 2017-01-28 11:30 | NUR ---
ICU/RN: S/P INTUBATION BY DR VAUGHAN; PT CONTINUED TO HAVE RESP DISTRESS WHILE AWAKE AND ALERT, AGREED TO PROCEED WITH DR VAUGHAN FOR INTUBATION DURING TIME OUT. FIRST INTUBATION ATTEMPT VOCAL CORDS NOT VISUALIZED, BLACK DEBRIS NOTED IN OROPHARYNX, DR KWAN NOTIFIED AND ARRIVED AT BEDSIDE. SECOND ATTEMPT SUCCESSFUL. INTUBATED WITH ETT 7.5 SECURED AT 24CM @ LIPLINE. STAT CXR AND VENT SETTINGS ORDERED BY DR KWAN. ALARM SOUNDS AUDIBLE. WILL CONT TO MONITOR PT.
[2017-01-28] MEDS ORDERED: IV NS 0.9% 500 ML IV PRN (12:00)
[2017-01-28] MEDS: IV NS 0.9% 500 ML IV PRN ×2 (12:09→14:05)
[2017-01-28 12:16] LABS: ABG OXYGEN SATURATION 95.9 % (92.0-98.5); ABG PCO2 30.4 mmHg (35.0-45.0); ABG PH 7.519 (7.350-7.450); ABG PO2 82.3 mmHg (75.0-100.0); AaDO2 600.3 mmHg; COHb 0.4 % (0.5-1.5); MetHb 0.4 % (0.0-1.5); O2Hb 95.1 % (94.0-97.0); PEEP,BG 8 cm H2O; SITE, ABG Left Radial; VENT MODE, BG AC 12 500 100% +8; VT, ABG 500 mL
[2017-01-28] MEDS ORDERED: ETOMIDATE 2 MG/ML VIAL IV ONE (12:47)
[2017-01-28] MEDS ORDERED: SUCCINYLCHOLINE CHLORIDE 20 MG/ML VIAL IV ONE (12:47)
[2017-01-28] MEDS: Magnesium 1GM/D5W 100ML PREMIX 100 ML IV SCH ×4 (12:52→16:49)
[2017-01-28] MEDS: IV D5/ 0.9% NACL 1,000 ML IV PRN (12:58)
--- NOTE | 2017-01-28 14:05 | NUR ---
ICU/RN: PT WITH LABILE BP WITH SBP 80-90MM/HG; 3RD BAG OF NS 500CC IV BOLUS CURRENTLY INFUSING. INFORMED DAUGHTER CHAVA OF NEED FOR POSSIBLE PICC LINE INSERTION. PER DAUGHTER "I WANT TO SPEAK WITH THE DR FIRST BEFORE MAKING ANY DECISIONS." STUDIO CAMERA OPERATOR AND DR MCDONOUGH NOTIFIED.
[2017-01-28] MEDS: NOREPINEPHRINE 16 MG in IV D5W 500 ML IV PRN (17:40)
[2017-01-28] MEDS: PROPOFOL 100 ML IV PRN ×2 (17:56→23:30)
--- NOTE | 2017-01-28 18:00 | NUR ---
ICU/RN: CALLED RX TO F/U 1700 RESTASIS DOSE, PENDING DELIVERY
--- NOTE | 2017-01-28 18:37 | NUR ---
ICU/RN: PT NOTED WITH JUNCTIONAL ESCAPE RHYTHM, DR VAZQUEZ NOTIFIED. AWAITING MD ORDERS.
--- NOTE | 2017-01-28 19:15 | NUR ---
ICU/RN: PT INTUBATED IN BED, NO DISTRESS NOTED, HR 50'S, TOLERATING CURRENT VENT SETTINGS. FC DRAINING WELL TO GRAVITY. KRISTA PICC WITH DIPRIVAN, LEVOPHED AND IVF INFUSING WELL. AWAITING ORDERS FROM DR VAZQUEZ. CARE ENDORSED TO PM RN FOR ANTON.
[2017-01-28 19:30] LABS: MAGNESIUM 2.5 mg/dL (1.8-2.4); POTASSIUM 3.1 mmol/L (3.5-5.1)
[2017-01-28 19:41] LABS: TROPONIN I 3.042 ng/mL (0.00-0.056)
[2017-01-28 20:15] LABS: ABG BASE EXCESS 3.4 mmol/L; ABG OXYGEN SATURATION 96.4 % (92.0-98.5); ABG PCO2 36.3 mmHg (35.0-45.0); ABG PH 7.486 (7.350-7.450); ABG PO2 88.5 mmHg (75.0-100.0); AaDO2 588.2 mmHg; MetHb 0.6 % (0.0-1.5); O2Hb 95.8 % (94.0-97.0); PEEP,BG 8 cm H2O; SITE, ABG Left Radial; VT, ABG 450 mL
[2017-01-28] MEDS: FAMOTIDINE/PF INJ 20 MG/2 ML VIAL IV SCH (22:08)
--- NOTE | 2017-01-28 23:00 | NUR ---
BULK SEALER OPERATOR PT IN BED AWAKE. RESTRAINED BUT TRYING TO PULL THE ETT. PROPOFOL AT 50 INCREASED TO 70. WILL CONTINUE TO MONITOR.
[2017-01-29] VITALS (82 sets, daily range): BP systolic 11–139; BP diastolic 48–76
[2017-01-29] MEDS: PIPERACILLIN /TAZOBACTAM 3.375 G in IV D5W 50 ML IV SCH ×5 (00:53→23:24)
[2017-01-29] MEDS: PROPOFOL 100 ML IV PRN ×5 (03:28→23:35)
[2017-01-29] MEDS: ACETYLCYSTEINE 10% SOLN 400 MG/4 ML VIAL NEB SCH ×6 (03:38→23:48)
[2017-01-29] MEDS: IPRATROPIUM NEB FS 0.5 MG/2.5 ML AMPUL.NEB NEB SCH ×6 (03:38→23:48)
[2017-01-29] MEDS: ALBUTEROL FS 2.5 MG/0.5 ML VIAL.NEB NEB SCH ×6 (03:38→23:48)
[2017-01-29 05:23] LABS: CALCIUM, SERUM 9.1 mg/dL (8.5-10.1); CARBON DIOXIDE 31 mmol/L (21-32); CHLORIDE 102 mmol/L (98-107); CREATININE 0.9 mg/dL (0.6-1.3); GLUCOSE 182 mg/dL (74-106); MAGNESIUM 2.1 mg/dL (1.8-2.4); POTASSIUM 2.9 mmol/L (3.5-5.1); SODIUM SERUM 142 mmol/L (136-145); UREA NITROGEN, BLOOD 21 mg/dL (7-18)
[2017-01-29] MEDS: IV D5/ 0.9% NACL 1,000 ML IV PRN ×2 (06:19→23:35)
[2017-01-29 07:57] LABS: ABG OXYGEN SATURATION 93.2 % (92.0-98.5); ABG PCO2 33.6 mmHg (35.0-45.0); ABG PH 7.519 (7.350-7.450); ABG PO2 68.2 mmHg (75.0-100.0); AaDO2 611.2 mmHg; COHb 0.3 % (0.5-1.5); MetHb 0.7 % (0.0-1.5); O2Hb 92.3 % (94.0-97.0); PEEP,BG 8 cm H2O; SITE, ABG Left Radial; VT, ABG 450 mL
[2017-01-29 08:17] LABS: BASOPHILS # (AUTO) 0.1 /CMM (0.0-0.2); BASOPHILS % (AUTO) 0.3 % (0.0-2.0); EOSINOPHILS # (AUTO) 0.2 /CMM (0.0-0.7); HEMATOCRIT 31 % (33-45); HEMOGLOBIN 10.3 g/dL (11.5-14.8); LYMPHOCYTES % (AUTO) 14.5 % (20.0-44.0); MEAN CORPUSCULAR HEMOGLOBIN 31 PG (26.0-33.0); MEAN CORPUSCULAR HGB CONC 33 g/dl (31.0-36.0); MEAN CORPUSCULAR VOLUME 93 fL (82-100); MONOCYTES # (AUTO) 1.4 /CMM (0.1-1.30); NEUTROPHILS # (AUTO) 15.8 /CMM (1.8-8.9); NEUTROPHILS % (AUTO) 77.2 % (43.0-81.0); PLATELET COUNT (AUTO) 285 /CMM (150-450); RDW COEFFICIENT OF VARIATION 14.9 (11.5-15.0); RED BLOOD CELL COUNT(AUTO) 3.36 MIL/uL (4.0-5.2); WHITE BLOOD COUNT (AUTO) 20.5 K/uL (4.3-11.0)
[2017-01-29] MEDS: OLOPATADINE HCL 0.1% OPHTH BOTTLE EACHEYE SCH ×3 (08:25→16:58)
[2017-01-29] MEDS: POTASSIUM CL. PREMIX PERIPHER. 50 ML IV SCH ×4 (08:25→11:47)
[2017-01-29] MEDS: FAMOTIDINE/PF INJ 20 MG/2 ML VIAL IV SCH ×2 (08:25→21:00)
[2017-01-29] MEDS: NYSTATIN (PYXIS) 500,000 UNIT/5 ML ORAL.SUSP PO SCH ×3 (08:26→16:58)
[2017-01-29] MEDS: methylPREDNISolone SOD SUCC 125 MG/2ML VIAL IV SCH (08:26)
[2017-01-29] MEDS: RESTASIS EACHEYE SCH ×2 (08:28→16:59)
[2017-01-29] MEDS: ENOXAPARIN SODIUM 60 MG/0.6 ML DISP.SYRIN SQ SCH (08:29)
[2017-01-29] MEDS: MORPHINE SULFATE INJ 2 MG/ML DISP.SYRIN IV PRN ×3 (08:30→16:58)
[2017-01-29] MEDS ORDERED: Potassium Chloride 10 MEQ, LIDOCAINE HCL/PF 1% 1 ML in IV D5W 50 ML IV SCH ×2 (08:30→10:30)
--- NOTE | 2017-01-29 09:00 | NUR ---
. PULMONARY Dr. Hunt at bedside update was given. discussed pts cardiac rhythm change management director night and trop levels. pts daughters at bedside. Dr. Hunt was able to speak with them and given them an update and pts plan of care.
[2017-01-29] MEDS: FLUCONAZOLE IN NS 100 MG in PREMIX 1 EA IV SCH ×2 (09:16)
--- NOTE | 2017-01-29 10:57 | NUR ---
RT PEEP INCREASED TO 10. FIO2 TITRATED TO 90% Addendum: 01/29/17 at 1058 by GAVIN MILLER RT Amended: Links added.
--- NOTE | 2017-01-29 11:09 | NUR ---
CNC SERVICE ENGINEER: SEDATION Diprivan decreased to 40mcg/kg/min. pt is awake able to follow simple commands. Diprivan increased to 50mcg/kg/min, for pt comfort and sedation. will monitor closely.
[2017-01-29] MEDS ORDERED: POTASSIUM CL. PREMIX PERIPHER. 50 ML IV SCH (12:30)
[2017-01-29] MEDS: Potassium Chloride 10 MEQ, LIDOCAINE HCL/PF 1% 1 ML in IV D5W 50 ML IV SCH ×2 (13:02→14:25)
[2017-01-29] MEDS: ASPIRIN 300 MG/SUPP.RECT RC SCH (17:08)
--- NOTE | 2017-01-29 19:44 | NUR ---
agricultural engineer. received the pt rest on the bed. orally intubated. sedated with diprivan. ETT 7.5CM,LIP 24CM,AC 12,FIO2 80%, PEEP 10. SAT 98%. INTERPRETER AND TRANSLATOR SHOWING NSR. IV LT UPPER ARM MID LINE DIPRIVAN 50MCG/KG/MIN,IVF D5NS 50ML/H.GAVI SOFT WRIST RESTRAINT CHECKED AND RELEASED NO INJURY OR REDNESS NOTED. FC PATENT. NPO. HOB ELEVATED. TURN AND REPOSITION Q2H. WILL CONTINUE TO MONITOR VITALS.
[2017-01-30] VITALS (85 sets, daily range): BP systolic 84–161; BP diastolic 28–75
[2017-01-30] MEDS: ACETYLCYSTEINE 10% SOLN 400 MG/4 ML VIAL NEB SCH ×6 (02:58→23:47)
[2017-01-30] MEDS: IPRATROPIUM NEB FS 0.5 MG/2.5 ML AMPUL.NEB NEB SCH ×6 (02:58→23:47)
[2017-01-30] MEDS: ALBUTEROL FS 2.5 MG/0.5 ML VIAL.NEB NEB SCH ×6 (02:58→23:47)
--- NOTE | 2017-01-30 03:44 | NUR ---
CANOE BUILDER. AM CARE. ORAL CARE, BED BATH GIVEN. LINEN CHANGED, REMAINING SAME VENT SETTING TOLERATED WELL. SAT 98%. NO ACUTE DISTRESS NOTED. BULB INSPECTOR SHOWING NSR WITH MULTIPLE PVCS. HOB ELEVATED. NPO. TURN AND REPIOSITION Q2H. FC PATENT. URINE DRAINING. IV LT UPPER ARM PICC LINE. IVF D5NS 50ML/H, DIPRIVAN 50MCG/KG/MIN. GAVI SOFT WRIST RESTRAINT CHECKED AND RELEASED. NO INJURY OR REDNESS NOTED. WILL CONTINUE TO MONITOR VITALS.
[2017-01-30] MEDS: PROPOFOL 100 ML IV PRN ×5 (03:50→22:26)
[2017-01-30 04:56] LABS: BASOPHILS % (AUTO) 0.2 % (0.0-2.0); EOSINOPHILS # (AUTO) 0.2 /CMM (0.0-0.7); EOSINOPHILS % (AUTO) 0.8 % (0.0-6.0); HEMATOCRIT 31 % (33-45); HEMOGLOBIN 10.1 g/dL (11.5-14.8); LYMPHOCYTES # (AUTO) 1.9 /CMM (0.8-4.8); LYMPHOCYTES % (AUTO) 8.9 % (20.0-44.0); MEAN CORPUSCULAR HEMOGLOBIN 31 PG (26.0-33.0); MEAN CORPUSCULAR HGB CONC 33 g/dl (31.0-36.0); MEAN CORPUSCULAR VOLUME 93 fL (82-100); MONOCYTES # (AUTO) 0.5 /CMM (0.1-1.30); MONOCYTES % (AUTO) 2.2 % (2.0-12.0); NEUTROPHILS # (AUTO) 18.6 /CMM (1.8-8.9); NEUTROPHILS % (AUTO) 87.9 % (43.0-81.0); PLATELET COUNT (AUTO) 198 /CMM (150-450); RDW COEFFICIENT OF VARIATION 14.4 (11.5-15.0); WHITE BLOOD COUNT (AUTO) 21.2 K/uL (4.3-11.0)
[2017-01-30] MEDS: PIPERACILLIN /TAZOBACTAM 3.375 G in IV D5W 50 ML IV SCH ×3 (05:14→17:04)
[2017-01-30 05:20] LABS: CALCIUM, SERUM 9.9 mg/dL (8.5-10.1); CARBON DIOXIDE 31 mmol/L (21-32); CHLORIDE 107 mmol/L (98-107); CREATININE 0.9 mg/dL (0.6-1.3); GLUCOSE 141 mg/dL (74-106); PHOSPHORUS 2.7 mg/dL (2.5-4.9); POTASSIUM 3.1 mmol/L (3.5-5.1); SODIUM SERUM 145 mmol/L (136-145); UREA NITROGEN, BLOOD 21 mg/dL (7-18)
[2017-01-30 05:46] LABS: BAND % (MANUAL) 6 % (0.0-5.0); LYMPHOCYTES % (MANUAL) 11 % (16-48); MONOCYTES % (MANUAL) 3 % (0-11.0); NEUTROPHILS % (MANUAL) 80 (42-76)
--- NOTE | 2017-01-30 07:38 | NUR ---
Female intubated pt received. Pt 7.5 ETT secured at 24cm @ the lip. Vent is plugged into a red outlet, alarms are set and audible, and BVM is at bedside. Addendum: 01/30/17 at 0739 by ERNESTO PERALES RT Amended: Links added.
[2017-01-30 08:44] LABS: ABG BASE EXCESS 3.7 mmol/L; ABG OXYGEN SATURATION 92.4 % (92.0-98.5); ABG PCO2 35.8 mmHg (35.0-45.0); ABG PH 7.495 (7.350-7.450); ABG PO2 66.2 mmHg (75.0-100.0); AaDO2 466.6 mmHg; COHb 0.3 % (0.5-1.5); MetHb 0.6 % (0.0-1.5); O2Hb 91.6 % (94.0-97.0); PEEP,BG 10 cm H2O; SITE, ABG Right Radial; VENT MODE, BG AC 12 450 80% +10; VT, ABG 450 mL
[2017-01-30] MEDS: FAMOTIDINE/PF INJ 20 MG/2 ML VIAL IV SCH ×2 (08:44→21:42)
[2017-01-30] MEDS: NYSTATIN (PYXIS) 500,000 UNIT/5 ML ORAL.SUSP PO SCH ×3 (08:44→17:02)
[2017-01-30] MEDS: methylPREDNISolone SOD SUCC 125 MG/2ML VIAL IV SCH (08:45)
[2017-01-30] MEDS: RESTASIS EACHEYE SCH ×2 (08:45→17:02)
[2017-01-30] MEDS: OLOPATADINE HCL 0.1% OPHTH BOTTLE EACHEYE SCH ×3 (08:45→17:03)
[2017-01-30] MEDS: ENOXAPARIN SODIUM 60 MG/0.6 ML DISP.SYRIN SQ SCH (08:45)
[2017-01-30] MEDS: FLUCONAZOLE IN NS 100 MG in PREMIX 1 EA IV SCH ×2 (08:46)
[2017-01-30] MEDS: ASPIRIN 300 MG/SUPP.RECT RC SCH (08:46)
[2017-01-30] MEDS: MORPHINE SULFATE INJ 2 MG/ML DISP.SYRIN IV PRN (08:48)
[2017-01-30] MEDS: POTASSIUM CL. PREMIX PERIPHER. 50 ML IV SCH ×4 (09:57→13:14)
--- NOTE | 2017-01-30 10:53 | NUR ---
SERVICE EMPLOYEE; RESP NOTED PT CONTINUES TO BE TACHYPNEIC, RESP 26 RESP/MIN. SATURATION DECREASING TO 88%. DR. KWAN AT BEDSIDE FIO2 INCREASED TO 100% AND DIPRIVAN INCREASED TO 100MCG/KG/MIN. SATURATIONS NOW 97%. WILL MONITOR CLOSELY
[2017-01-30] MEDS: NOREPINEPHRINE 16 MG in IV D5W 500 ML IV PRN (11:05)
--- NOTE | 2017-01-30 11:28 | NUR ---
MUSEUM SERVICE SCHEDULER; AFTER INCREASING DIPRIVAN TO 100MCG/MIN NOTED HEART RATE DECREASED TO 47 BPM. BP DOWN TO 84/39. DIPRIVAN DECREASED TO 80MCG/KG/MIN. NOTED HEART RATE INCREASE TO [address] KWAN NOTIFIED NEW ORDERS GIVEN TO ATTEMPT TO DECREASE DIPRIVAN AND START MORPHINE DRIP TO KEEP RESP RATE LESS THAN OR EQUAL TO 16. ORDERS ENTERED.
[2017-01-30] MEDS ORDERED: MORPHINE SULFATE INJ 4 MG/ML DISP.SYRIN IV PRN (11:30)
[2017-01-30] MEDS: MORPHINE SULFATE PF DRIP 250 MG in IV D5W 240 ML IV PRN (14:58)
--- NOTE | 2017-01-30 19:48 | NUR ---
OXYACETYLENE BURNER. INITIAL ASSESSMENT. RECEIVED THE PT REST ON THE BED. ORALLY INTUBATED. SEDATED WITH DIPRIVAN 50MCG/KG/MIN, ETT 7.5CM,LIP 24CM,AC 12,TV 450,FIO2 100%, PEEP 10. SAT 98%. WOOD BARKER SHOWING S JON. HOB ELEVATED. IV LT UPPER ARM PICC LINE IVD D5NS 50ML/H. MORPHINE DRIP 7MG. HOB ELEVATED. FC PATENT. TURN AND REPOSITION Q2H. WILL CONTINUE TO MONITOR VITALS.
[2017-01-30] MEDS: IV D5/ 0.9% NACL 1,000 ML IV PRN (22:26)
--- NOTE | 2017-01-30 22:44 | NUR ---
RT NOTE PT RECEIVED MECHANICALLY VENTILATED. 7.5 ETT 24 CM AT LIP. SETTINGS PRESCRIBED. ALARMS SET PER PROTOCOL AND AUDIBLE. VENT PLUGGED IN TO RED OUTLET. AMBU BAG AT BED SIDE. NO DISTRESS NOTED. WILL CONTINUE TO MONITOR. Addendum: 01/30/17 at 2246 by ATUL ALFONSO RT Amended: Links added.
[2017-01-31] VITALS (46 sets, daily range): BP systolic 83–148; BP diastolic 42–65
[2017-01-31] MEDS: PIPERACILLIN /TAZOBACTAM 3.375 G in IV D5W 50 ML IV SCH ×3 (01:00→13:16)
[2017-01-31] MEDS: IPRATROPIUM NEB FS 0.5 MG/2.5 ML AMPUL.NEB NEB SCH ×4 (03:13→15:25)
[2017-01-31] MEDS: ALBUTEROL FS 2.5 MG/0.5 ML VIAL.NEB NEB SCH ×4 (03:13→15:25)
[2017-01-31] MEDS: ACETYLCYSTEINE 10% SOLN 400 MG/4 ML VIAL NEB SCH ×4 (03:13→15:25)
--- NOTE | 2017-01-31 03:28 | NUR ---
ELECTROLYTIC DE SCALER. AM CARE, ORAL CARE, BED BATH GIVEN. LINEN CHANGED, REMAINING SAME VENT SETTING. SAT 94%. GREEN END MAN SHOWING S JON. IV LT UPPER ARM PICC LINE IVF D5NS 50ML/H, DIPRIVAN 20MCG/KG/MIN, MORPHINE DRIP 7MG/HOB ELEVATED, FC PATENT. TURN AND REPOSITION Q2H. WILL CONTINUE TO MONITOR VITALS.
[2017-01-31 05:00] LABS: BASOPHILS % (AUTO) 0.1 % (0.0-2.0); EOSINOPHILS % (AUTO) 0.2 % (0.0-6.0); HEMATOCRIT 26 % (33-45); HEMOGLOBIN 8.8 g/dL (11.5-14.8); LYMPHOCYTES # (AUTO) 1.1 /CMM (0.8-4.8); LYMPHOCYTES % (AUTO) 8.8 % (20.0-44.0); MEAN CORPUSCULAR HEMOGLOBIN 32 PG (26.0-33.0); MEAN CORPUSCULAR HGB CONC 34 g/dl (31.0-36.0); MEAN CORPUSCULAR VOLUME 95 fL (82-100); MONOCYTES # (AUTO) 0.9 /CMM (0.1-1.30); MONOCYTES % (AUTO) 6.7 % (2.0-12.0); NEUTROPHILS # (AUTO) 10.8 /CMM (1.8-8.9); NEUTROPHILS % (AUTO) 84.2 % (43.0-81.0); PLATELET COUNT (AUTO) 185 /CMM (150-450); RDW COEFFICIENT OF VARIATION 14.9 (11.5-15.0); RED BLOOD CELL COUNT(AUTO) 2.78 MIL/uL (4.0-5.2); WHITE BLOOD COUNT (AUTO) 12.9 K/uL (4.3-11.0)
[2017-01-31 05:37] LABS: CALCIUM, SERUM 9.4 mg/dL (8.5-10.1); CARBON DIOXIDE 33 mmol/L (21-32); CHLORIDE 109 mmol/L (98-107); CREATININE 0.9 mg/dL (0.6-1.3); GLUCOSE 213 mg/dL (74-106); MAGNESIUM 2.3 mg/dL (1.8-2.4); PHOSPHORUS 4.8 mg/dL (2.5-4.9); POTASSIUM 4.4 mmol/L (3.5-5.1); SODIUM SERUM 145 mmol/L (136-145); UREA NITROGEN, BLOOD 24 mg/dL (7-18)
--- NOTE | 2017-01-31 07:47 | NUR ---
INITIAL SHOP MECHANIC NOTE RCVD PT SEDATED, INTUBATED ETT 7.5 24 AT LIP. SB ON TELE. TOLERATING ORDERED VENT SETTINGS. SHOWING NO S/O DISTRESS/PAIN. [place] DRAINING YELLOW URINE. KRISTA PICC C/D/I/PATENT. IVF INFUSING NO S/O INFILTRATION/PHLEBITIS OBSERVED. WILL CONTINUE TO MONITOR PT FOR SAFETY AND COMFORT. CALL LIGHT WITHIN REACH. BED IN LOW AND LOCKED POSITION.
--- NOTE | 2017-01-31 09:31 | NUR ---
DREDGEMASTER NOTE DR. KWAN IN UNIT SPOKE WITH PT'S DAUGHTERS, THEY'RE CHOOSING TO TERMINALLY EXTUBATE PT THIS AFTERNOON. WILL CONTINUE TO MONITOR PT.
[2017-01-31] MEDS: NYSTATIN (PYXIS) 500,000 UNIT/5 ML ORAL.SUSP PO SCH ×2 (10:16→13:16)
[2017-01-31] MEDS: FAMOTIDINE/PF INJ 20 MG/2 ML VIAL IV SCH (10:16)
[2017-01-31] MEDS: FLUCONAZOLE IN NS 100 MG in PREMIX 1 EA IV SCH ×2 (10:16)
[2017-01-31] MEDS: RESTASIS EACHEYE SCH ×2 (10:17→17:00)
[2017-01-31] MEDS: ASPIRIN 300 MG/SUPP.RECT RC SCH (10:17)
[2017-01-31] MEDS: OLOPATADINE HCL 0.1% OPHTH BOTTLE EACHEYE SCH ×3 (10:18→17:00)
[2017-01-31] MEDS: methylPREDNISolone SOD SUCC 125 MG/2ML VIAL IV SCH (10:20)
[2017-01-31] MEDS: ENOXAPARIN SODIUM 60 MG/0.6 ML DISP.SYRIN SQ SCH (10:27)
[2017-01-31] MEDS: PROPOFOL 100 ML IV PRN (13:09)
[2017-01-31] MEDS ORDERED: MORPHINE SULFATE INJ 2 MG/ML DISP.SYRIN IV ONE (15:30)
[2017-01-31] MEDS ORDERED: DC PROPOFOL WHEN EXTUBATED XX PRN (16:00)
--- NOTE | 2017-01-31 16:04 | NUR ---
AUTOMATIC QUILLING MACHINE OPERATOR NOTE PT'S DAUGHTERS AT BEDSIDE DISCUSSED WITH DR KWAN COMFORT MEASURES. PT'S DAUGHTERS AGREED ON COMFORT CARE. RCVD ORDERS FROM DR. KWAN. LOTTIE CLEMENS INFORMED. WILL CONTINUE TO MONITOR PT.
[2017-01-31] MEDS: LORAZEPAM INJ 2 MG/ML VIAL IV PRN ×2 (16:12→17:07)
[2017-01-31] MEDS ORDERED: MORPHINE SULFATE INJ 4 MG/ML DISP.SYRIN IVP ONE (16:30)
[2017-01-31] MEDS: MORPHINE SULFATE PF DRIP 250 MG in IV D5W 240 ML IV PRN (16:39)
--- NOTE | 2017-01-31 18:07 | NUR ---
COMMERCIAL LOAN ANALYST NOTE PT AT 1755, PT'S FAMILY AT BEDSIDE COMFORTED. GIVEN INFORMATION ON HOW TO SEAMAN REMAINS. PT'S BELONGINGS TAKEN BY PT'S DAUGHTERS. DR. AMES INFORMED OF PT'S EXPIRATION.
--- NOTE | 2017-01-31 18:56 | NUR ---
ICU/RN BODY TRANSFER TO [facility].FAMILY HAS NO ARRANGEMENT AT THIS TIME.ALL INFO TAKEN AND PLACED IN THE CHART.
== END 2017-01-31 17:55 | disposition expired | DRG 871 ==
LOC: ER 15:22 → ICU 17:45
PROVIDERS: ADMIT Nurse Practitioner Acute Care; ATTEND Nurse Practitioner Acute Care
PROC: 05H633Z Insertion of Infusion Device into Left Subclavian Vein, Percutaneous Approach (ICD-10-PCS; 2017-01-25)
PROC: B547ZZA Ultrasonography of Left Subclavian Vein, Guidance (ICD-10-PCS; 2017-01-25)
PROC: 0BH17EZ Insertion of Endotracheal Airway into Trachea, Via Natural or Artificial Opening (ICD-10-PCS; principal; 2017-01-28)
PROC: 5A1945Z Respiratory Ventilation, 24-96 Consecutive Hours (ICD-10-PCS; 2017-01-28)
PROC: 02HV33Z Insertion of Infusion Device into Superior Vena Cava, Percutaneous Approach (ICD-10-PCS; 2017-01-28)
PROC: B548ZZA Ultrasonography of Superior Vena Cava, Guidance (ICD-10-PCS; 2017-01-28)
DX: A41.9 Sepsis, unspecified organism (principal); J18.9 Pneumonia, unspecified organism; J96.21 Acute and chronic respiratory failure with hypoxia; I21.4 Non-ST elevation (NSTEMI) myocardial infarction; R65.21 Severe sepsis with septic shock; D68.59 Other primary thrombophilia; C79.9 Secondary malignant neoplasm of unspecified site; I50.32 Chronic diastolic (congestive) heart failure; E44.0 Moderate protein-calorie malnutrition; B37.49 Other urogenital candidiasis; C34.90 Malignant neoplasm of unspecified part of unspecified bronchus or lung; J21.9 Acute bronchiolitis, unspecified; Z51.5 Encounter for palliative care; D89.9 Disorder involving the immune mechanism, unspecified; Z99.81 Dependence on supplemental oxygen; G62.9 Polyneuropathy, unspecified; Z88.1 Allergy status to other antibiotic agents; Z88.8 Allergy status to other drugs, medicaments and biological substances; Z91.011 Allergy to milk products; Z92.21 Personal history of antineoplastic chemotherapy; Z87.891 Personal history of nicotine dependence; Z87.01 Personal history of pneumonia (recurrent); Z85.3 Personal history of malignant neoplasm of breast; Z80.9 Family history of malignant neoplasm, unspecified; K44.9 Diaphragmatic hernia without obstruction or gangrene; J98.09 Other diseases of bronchus, not elsewhere classified; I70.0 Atherosclerosis of aorta; F41.1 Generalized anxiety disorder; F32.9 Major depressive disorder, single episode, unspecified; E87.6 Hypokalemia; D50.9 Iron deficiency anemia, unspecified; Z98.890 Other specified postprocedural states
CPT/HCPCS: 31720; 36415; 36600; 71010-TC; 71250-TC; 78582; 80048-TC; 80061-TC; 80076-TC; 80202-TC; 81000-TC; 82728-TC; 82746; 82803-TC; 83540-TC; 83605-TC; 83735-TC; 83880; 84100-TC; 84132-TC; 84443-TC; 84484-TC; 85025-TC; 85378-TC; 85730-TC; 87040-TC; 87070-TC; 87081-TC; 87086-TC; 87281; 87400; 87449; 87899; 93307-TC; 93970-TC; 94002-TC; 94003-TC; 94668-TC; 94762-TC; 94799-TC; A4216; A4606; A6402; A9540; A9567; C1751; J0330; J0456; J0696; J1450; J1644; J1650; J1940; J2060; J2270; J2274; J2405; J2543; J2930; J3370; J3475; J3480; J3490; J7030; J7040; J7042; J7050; J7060; Z7610